=== PATIENT | female | born 1975 | race African-American/Black ===

== ENCOUNTER 2020-05-03 03:10 | Emergency (ER) | payer SELFPAY ==
[~2020-05-03] VITALS: Ht 167.6 cm; Wt 90.9 kg
[2020-05-03 03:17] VITALS: Ht 167.6 cm; Wt 90.9 kg
[2020-05-03] MEDS ORDERED: VITAMIN D5000 UNI1 PO (03:19)
[2020-05-03] MEDS ORDERED: PROAIR HFA8.5 G1 INH (03:19)
[2020-05-03] MEDS ORDERED: COREG CR10 MG PO (03:19)
[2020-05-03] MEDS ORDERED: ADVAIR 250-501 EAC1 INH (03:19)
[2020-05-03] MEDS ORDERED: SINGULAIR10 MG PO (03:19)
[2020-05-03] MEDS ORDERED: ALBUTEROL1.25 MG/3 (03:20)
[2020-05-03 03:41] LABS: BASOPHILS 0.1 % (0-2); BILIRUBIN NEGATIVE (NEGATIVE); EOSINOPHILS 0.1 % (0-7); GLUCOSE 50 mg/dL (NEGATIVE); HEMATOCRIT 45.3 % (36.0-48.0); HEMOGLOBIN 14.9 g/dL (12-16); IMMATURE GRANULOCYTES 0.3 % (0-5); KETONE NEGATIVE (NEGATIVE); LYMPHOCYTES 7.4 % (15-50); MCH 27.2 pg (26.0-34.0); MCHC 32.9 g/dL (31.0-37.0); MCV 82.8 fL (80.0-100.0); MEAN PLATELET VOLUME 11.3 fL (7.4-10.4); MONOCYTES 3.1 % (2-11); NITRITE NEGATIVE (NEGATIVE); PLATELET COUNT 284 10x3/uL (130-400); RBC 5.47 10x6/uL (4.00-5.40); RDW 14.2 % (11.5-14.5); UROBILINOGEN NORMAL (NORMAL); WBC 15.6 10x3/uL (4.8-10.8)
[2020-05-03 03:55] LABS: CALCIUM 9.2 mg/dL (8.5-10.1); CARBON DIOXIDE 28.2 mmol/L (21.0-32.0); CREATININE - SERUM 1.1 mg/dL (0.6-1.3); POTASSIUM - SERUM 4.2 mmol/L (3.5-5.1)
[2020-05-03 04:01] LABS: ALBUMIN 3.7 g/dL (3.4-5.0); BILIRUBIN - TOTAL 0.48 mg/dL (0.2-1.3); PROTEIN - SERUM 8.3 g/dL (6.4-8.2)
[2020-05-03 04:05] LABS: HCG URINE NEGATIVE (NEGATIVE)
[2020-05-03 06:49] VITALS: BP 135/90
== END 2020-05-03 06:50 | disposition other institution (70) ==
LOC: D.ER 03:10
PROVIDERS: Family Medicine
DX: N13.2 Hydronephrosis with renal and ureteral calculous obstruction (principal); I10 Essential (primary) hypertension; J45.909 Unspecified asthma, uncomplicated; R10.9 Unspecified abdominal pain